=== PATIENT | male | born 1985 | race African-American/Black ===

== ENCOUNTER 2018-01-23 05:38 | Emergency (ER) | payer SELFPAY ==
[~2018-01-23] VITALS: Ht 170.2 cm; Wt 121.2 kg
[~2018-01-23 05:38] MED LIST: IBUP800T23 PO; METH750T2 PO
[2018-01-23 05:42] VITALS: BP 184/105; PULSE 107; RESP 18; TEMP 98.5; O2SAT 98
[2018-01-23] MEDS ORDERED: IBUP1TAB7 PO (07:49)
[2018-01-23] MEDS ORDERED: AMOX875T PO (07:49)
--- NOTE | 2018-01-23 07:49 | PD ---
HPI Chief Complaint: ENT Complaint Time Seen by Provider: 07:47 Travel History International Travel<30 days: No Contact w/Intl Traveler<30days: No Traveled to known affect area: No History of Present Illness HPI 32-year-old male presents to the emergency department with complaint of left ear pain that started yesterday. Says he was sick a week ago but his symptoms have resolved. He denies nasal congestion, cough, sore throat, fevers. Denies ear drainage. Reports muffled hearing. Denies known foreign body. Has not taken any medication or try any treatments to alleviate his symptoms. Pain . No known aggravating or relieving factors. Constantly aggravated. History of hypertension and does not take medications. Blood pressure is elevated in the ER and the patient denies chest pain, shortness of breath, headache, vomiting, diaphoresis, change in vision, feeling faint. History of asthma. No primary care provider. No known allergies. Has no other medical complaints. No other modifying factors or associated signs and symptoms. PFSH Past Medical History Asthma: Yes (BRONCHIAL) Diminished Hearing: No Hypertension: Yes Tetanus Vaccination: Unknown Influenza Vaccination: No Past Surgical History Surgical History: No Previous Surgery Social History Alcohol Use: No Tobacco Use: Yes (10 CIGS A DAY) Substance Use: No Allergies-Medications (Allergen,Severity, Reaction): Coded Allergies: No Known Allergies (Verified Adverse Reaction, Unknown, 01/23/18) Reported Meds & Prescriptions Reported Meds & Active Scripts Active Amoxicillin 875 Mg Tab 875 Mg PO BID 10 Days Ibuprofen 800 Mg Tab 800 Mg PO Q6HR PRN Review of Systems Except as stated in HPI: all other systems reviewed are Neg Physical Exam Narrative GENERAL: Well-nourished, well-developed patient, in no acute distress ; afebrile, nontoxic-appearing SKIN: Warm and dry. No rash. HEAD: Atraumatic. Normocephalic. EYES: Pupils equal and round. No scleral icterus. No injection or drainage. EARS: Bilateral pinnae and external canals appear within normal limits. Left tympanic membrane with erythema, loss of landmarks, and with dullness; without perforation. ENT: Mucosa pink and moist. Oral Pharynx without erythema; without edema or exudates. No uvular edema. No uvular, palatal, or tonsillar deviation. Airway patent. NECK: Trachea midline. No lymphadenopathy. CARDIOVASCULAR: Regular rate and rhythm. No murmur appreciated. RESPIRATORY: No accessory muscle use. Clear to auscultation. Breath sounds equal bilaterally. GASTROINTESTINAL: Rounded. MUSCULOSKELETAL: No obvious deformities. No clubbing. No cyanosis. No edema. NEUROLOGICAL: Awake and alert. Oriented 3. No obvious cranial nerve deficits. Motor grossly within normal limits. Normal speech. Moves all extremities. 5/5 strength to all extremities. PSYCHIATRIC: Appropriate mood and affect; insight and judgment normal. Data Data Last Documented VS Vital Signs Date Time Temp Pulse Resp B/P (MAP) Pulse Ox O2 Delivery O2 Flow Rate FiO2 01/23/18 05:42 98.5 107 18 184/105 (131) 98 Orders Orders Amoxicillin (Trimox) (01/23/18 08:00) Ibuprofen (Motrin) (01/23/18 08:00) Ed Discharge Order (01/23/18 07:52) Amlodipine (Norvasc) (01/23/18 08:15) [facility] Medical Decision Making Medical Screen Exam Complete: Yes Emergency Medical Condition: Yes Medical Record Reviewed: Yes Differential Diagnosis Otitis media, otitis externa, foreign body, cerumen impaction, tympanic membrane perforation Narrative Course 32-year-old male physical exam consistent with left otitis media. He is afebrile and nontoxic-appearing. Denies fever, vomiting. Patient's blood pressure is elevated in the ER. He does not take medications. He is asymptomatic. Blood pressure recheck 171/112. Heart rate 86 bpm. Amlodipine ordered and administered in the ER. Patient provided information to [facility] for follow-up. Instructed patient to follow-up in regards to high blood pressure. Amoxicillin, ibuprofen administered in the ER. Amlodipine , amoxicillin, ibuprofen prescribed for home. Instructed patient to follow up with primary care provider. Patient verbalizes understanding and agreement with treatment plan. Patient is medically cleared and stable for discharge. Discussed reasons to return to the emergency department. Patient agrees with treatment plan. The patients vital signs are stable and the patient is stable for outpatient follow-up and treatment. Patient discharged home, stable and in no acute distress. Diagnosis Primary Impression: Left otitis media Qualified Codes: H66.92 - Otitis media, unspecified, left ear Additional Impression: High blood pressure Qualified Codes: I10 - Essential (primary) hypertension Referrals: [facility] Primary Care Physician Patient Instructions: General Instructions, Hypertension (ED), Serous Otitis Media (ED) Additional Instructions: Take antibiotics as prescribed and complete full course Ibuprofen or Tylenol as directed and as needed to reduce pain and fever [id number] antihistamines or decongestants as directed and as needed for symptom management Avoid getting water in the ears Do not put anything in the ears; including Q-tips Follow-up with primary care provider Return to the emergency department immediately with worsening of symptoms Med/Other Pt SpecificInfo: Prescription(s) given Scripts Amlodipine (Amlodipine) 5 Mg Tab 5 MG PO DAILY for Blood Pressure Management, #30 TAB 0 Refills Prov: Victorina Flores 01/23/18 Amoxicillin (Amoxicillin) 875 Mg Tab 875 MG PO BID for Infection for 10 Days, #20 TAB 0 Refills Prov: Victorina Flores 01/23/18 Ibuprofen (Ibuprofen) 800 Mg Tab 800 MG PO Q6HR Y for PAIN, #30 TAB 0 Refills Prov: Victorina Flores 01/23/18 Disposition: 01 DISCHARGE HOME Condition: Stable Victorina Flores Jan 23, 2018 07:49
[2018-01-23] MEDS ORDERED: AMOXICILLIN 875 MG TAB PO ONE (08:00)
[2018-01-23] MEDS ORDERED: IBUPROFEN 800 MG TAB PO ONE (08:00)
[2018-01-23] MEDS ORDERED: AMLO5TAB2 PO (08:16)
[2018-01-23] MEDS ORDERED: amLODIPine BESYLATE 5 MG TAB PO ONE (08:30)
[2018-01-23 08:35] VITALS: BP 162/101
== END 2018-01-23 08:42 | disposition home or self-care (01) ==
LOC: NEPE 05:38
DX: H66.92 Otitis media, unspecified, left ear (principal); I10 Essential (primary) hypertension; F17.210 Nicotine dependence, cigarettes, uncomplicated
CPT/HCPCS: 99283